=== PATIENT | female | born 1945 | race American Indian/Alaskan Native ===

== ENCOUNTER 2017-06-06 08:56 | Outpatient (CLI) | payer MEDICARE ==
--- NOTE | 2017-06-06 13:55 | Mammography Report ---
BILATERAL DIGITAL SCREENING MAMMOGRAM with CAD: 06/06/17 08:56:00 CLINICAL: Routine screening. COMPARISON:None available. FINDINGS: The breasts are heterogeneously dense, which may obscure small masses. No mass, architectural distortion or suspicious calcifications. IMPRESSION: No mammographic evidence of malignancy. BI-RADS CATEGORY: 1 - - Negative RECOMMENDATION: Routine mammographic screening in one year. COMMENT: Patient follow-up letters are generated by our [employer] application.
--- NOTE | 2017-06-06 13:57 | Mammography Report ---
BONE DEXA:06/06/17 08:56:00 CLINICAL: Postmenopausal. No comparison. TECHNIQUE: Two site bone DEXA performed on an Hologic scanner. FINDINGS: The average BMD of the lumbar spine L1-L4 is 0.825g/cm squared with a T-score of -2.0 and a Z-score of 90.4. The average BMD of the left hip is 0.674g/cm squared with a T-score of -2.2 and a Z-score of -1.0. IMPRESSION: 1. WHO classification: Osteopenia with increased fracture risk based on lumbar spine measurements. 2. WHO classification: Osteoporosis with high fracture risk based on left hip measurements. RECOMMENDATION: Clinical correlation and routine screening. DEFINITIONS: BMD = Bone Mineral Density T-score = BMD related to mean peak bone mass of young adult (mean expressed in Standard Deviation) Z-score = Age matched BMD expressed in SD World Health Organization (WHO) Diagnostic Criteria Normal T-score > -1 SD Osteopenia T-score between -1 and -2.4 SD Osteoporosis T-score -2.5 SD or below NOTE: BMD is not the only risk factor for fracture. One should also consider factors such as the patient's age, risk of falling, previous osteoporotic fracture, family history of osteoporotic fractures, current smoker, and low body weight. Z-scores are not calculated if >80 years of age.
== END 2017-06-06 08:57 | disposition home or self-care (01) ==
LOC: MAMMO 08:56
PROVIDERS: ATTEND Obstetrics & Gynecology
DX: Z12.31 Encounter for screening mammogram for malignant neoplasm of breast (principal); M81.0 Age-related osteoporosis without current pathological fracture; M85.88 Other specified disorders of bone density and structure, other site; Z78.0 Asymptomatic menopausal state
CPT/HCPCS: 77067; 77080

== ENCOUNTER 2018-10-04 13:03 | Emergency (ER) | payer MEDICARE ==
[2018-10-04] MEDS ORDERED: NACL 0.9% 1000 ML 1,000 ML IV ONE (14:33)
--- NOTE | 2018-10-04 14:39 | Emergency Department Report ---
- General Chief complaint: Weakness Stated complaint: WEAKNESS Time Seen by Provider: 10/04/18 14:17 Source: patient, EMS Mode of arrival: Stretcher Limitations: No Limitations - History of Present Illness Initial comments: Patient is 73 years old female with history of hypertension and arthritis. Patient presented to the ER complaining of generalized weakness started yesterday. Patient stated that she had a similar episode last year. Patient denied any chest pain, shortness of breath, abdominal pain, nausea or vomiting. Patient denied any focal weakness numbness or tingling sensation. No fever or chills. MD Complaint: generalized weakness -: Last night Location: generalized Severity scale (0 -10): 0 - Related Data Home Medications Medication Instructions Recorded Confirmed Last Taken Aspirin BABY CHEW TAB 1 tab PO DAILY 07/28/14 08/11/14 08/06/14 Carvedilol 1 tab PO BID 07/28/14 08/11/14 08/10/14 Latanoprost 0.005% 1 drop OU DAILY 07/28/14 08/11/14 08/10/14 Lisinopril/Hydrochlorothiazide 1 tab PO DAILY 07/28/14 08/11/14 08/10/14 Omeprazole 1 cap PO DAILY 07/28/14 08/11/14 08/10/14 Ranitidine 1 tab PO DAILY 07/28/14 08/11/14 08/10/14 Simvastatin 1 tab PO DAILY 07/28/14 08/11/14 08/10/14 Mineral Oil/Petrolatum,White 3.5 gm OP HS 07/31/14 08/11/14 08/10/14 [Refresh Lacri-Lube Ointment] Allergies Allergy/AdvReac Type Severity Reaction Status Date / Time No Known Allergies Allergy Verified 10/04/18 13:40 ED Review of Systems ROS: Stated complaint: WEAKNESS Other details as noted in HPI Comment: All other systems reviewed and negative Constitutional: denies: chills, fever Respiratory: denies: cough, shortness of breath Cardiovascular: denies: chest pain, palpitations, dyspnea on exertion, orthopnea Gastrointestinal: denies: abdominal pain, nausea, vomiting, diarrhea, constipation, hematemesis, melena, hematochezia Musculoskeletal: denies: back pain Neurological: weakness (generalized). denies: headache ED Past Medical Hx - Past Medical History Previous Medical History?: Yes Hx Hypertension: Yes Hx Arthritis: Yes Hx Seizures: Yes (X1 2004; NONE SINCE) Additional medical history: high cholesterol - Surgical History Past Surgical History?: No - Social History Smoking Status: Never Smoker Substance Use Type: None - Medications Home Medications: Home Medications Medication Instructions Recorded Confirmed Last Taken Type Aspirin BABY CHEW TAB 1 tab PO DAILY 07/28/14 08/11/14 08/06/14 History Carvedilol 1 tab PO BID 07/28/14 08/11/14 08/10/14 History Latanoprost 0.005% 1 drop OU DAILY 07/28/14 08/11/14 08/10/14 History Lisinopril/Hydrochlorothiazide 1 tab PO DAILY 07/28/14 08/11/14 08/10/14 History Omeprazole 1 cap PO DAILY 07/28/14 08/11/14 08/10/14 History Ranitidine 1 tab PO DAILY 07/28/14 08/11/14 08/10/14 History Simvastatin 1 tab PO DAILY 07/28/14 08/11/14 08/10/14 History Mineral Oil/Petrolatum,White 3.5 gm OP HS 07/31/14 08/11/14 08/10/14 History [Refresh Lacri-Lube Ointment] ED Physical Exam - General Limitations: No Limitations General appearance: alert, in no apparent distress - Head Head exam: Present: atraumatic, normocephalic, normal inspection - Eye Eye exam: Present: normal appearance, PERRL - ENT ENT exam: Present: normal exam, normal orophraynx, mucous membranes moist - Neck Neck exam: Present: normal inspection, full ROM. Absent: tenderness, meningismus, lymphadenopathy, thyromegaly - Respiratory Respiratory exam: Present: normal lung sounds bilaterally - Cardiovascular Cardiovascular Exam: Present: regular rate, normal rhythm, normal heart sounds - GI/Abdominal GI/Abdominal exam: Present: soft, normal bowel sounds. Absent: distended, tenderness, guarding, rebound, rigid, organomegaly, mass, bruit, pulsatile mass, hernia - Extremities Exam Extremities exam: Present: normal inspection, full ROM, normal capillary refill. Absent: tenderness, pedal edema, calf tenderness - Back Exam Back exam: Present: normal inspection, full ROM. Absent: CVA tenderness (R), CVA tenderness (L), muscle spasm, paraspinal tenderness, vertebral tenderness, rash noted - Neurological Exam Neurological exam: Present: alert, oriented X3, CN II-XII intact, normal gait, reflexes normal - Psychiatric Psychiatric exam: Present: normal mood - Skin Skin exam: Present: warm, intact, normal color ED Course Vital Signs 10/04/18 10/04/18 10/04/18 14:01 14:28 14:43 Temperature 97.7 F Pulse Rate 63 57 L 64 Respiratory 13 15 13 Rate Blood Pressure Blood Pressure 125/75 [Left] O2 Sat by Pulse 99 96 98 Oximetry 10/04/18 10/04/18 10/04/18 15:00 15:31 16:00 Temperature Pulse Rate 65 62 63 Respiratory 12 15 16 Rate Blood Pressure 135/84 133/79 137/92 Blood Pressure [Left] O2 Sat by Pulse 100 99 97 Oximetry ED Medical Decision Making - Lab Data Result diagrams: 10/04/18 14:44 10/04/18 14:44 - EKG Data -: EKG Interpreted by Nh EKG shows normal: sinus rhythm Rate: bradycardia - EKG Data Interpretation: no acute changes - Radiology Data Radiology results: report reviewed CT brain is negative for acute finding. - Medical Decision Making Patient is 73 years old female with history of hypertension and arthritis. Patient presented to the ER complaining of generalized weakness started yesterday. Patient stated that she had a similar episode last year. Patient denied any chest pain, shortness of breath, abdominal pain, nausea or vomiting. Patient denied any focal weakness numbness or tingling sensation. No fever or chills. Patient stated that she is feeling much better. Patient and/or stated that her grandmother has been walking a lot outside in the heat recently. Patient had a mild rhabdomyolysis. Rest of her labs are unremarkable. Patient advised to increase her by mouth intake and to follow up with her primary care physician in the next 2-3 days. Critical care attestation.: If time is entered above; I have spent that time in minutes in the direct care of this critically ill patient, excluding procedure time. ED Disposition Clinical Impression: Weakness, Non-traumatic rhabdomyolysis Disposition: -01 TO HOME OR SELFCARE Is pt being admited?: No Condition: Stable Instructions: Rhabdomyolysis (ED), Weakness (ED) Referrals: JOSIAS BAGLEY MD [Primary Care Provider] - 3-5 Days
[2018-10-04 15:19] LABS: Basophils # (Auto) 0.1 K/mm3 (0.0-0.1); Basophils % (Auto) 1.1 % (0.0-1.8); Eosinophils # (Auto) 0.2 K/mm3 (0.0-0.4); Eosinophils % (Auto) 3.6 % (0.0-4.3); Hematocrit 40.6 % (30.3-42.9); Hemoglobin 13.3 gm/dl (10.1-14.3); Lymphocytes # (Auto) 1.4 K/mm3 (1.2-5.4); Lymphocytes % (Auto) 30.5 % (13.4-35.0); Mean Corpuscular HGB Conc 33 % (30-34); Mean Corpuscular Volume 89 fl (79-97); Monocytes # (Auto) 0.3 K/mm3 (0.0-0.8); Monocytes % (Auto) 6.2 % (0.0-7.3); Platelet Count 145 K/mm3 (140-440); Red Blood Count 4.54 M/mm3 (3.65-5.03); Red Cell Distribution Width 14.2 % (13.2-15.2)
[2018-10-04 15:25] LABS: BUN/Creatinine Ratio 15; Blood Urea Nitrogen 12 mg/dL (7-17); Calcium 9.5 mg/dL (8.4-10.2); Hemolysis Index 81
[2018-10-04 15:29] LABS: Alanine Aminotransferase 24 units/L (7-56); Albumin 3.7 g/dL (3.9-5)
[2018-10-04 15:39] LABS: Bilirubin,Direct < 0.2 mg/dL (0-0.2)
[2018-10-04 15:46] LABS: Free T4 (Free Thyroxine) 1.02 ng/dL (0.76-1.46)
[2018-10-04 16:05] LABS: Bilirubin,Urine NEG (Negative); Blood,Urine NEG (Negative); Color,Urine Yellow (Yellow); Protein,Urine <15 mg/dL mg/dL (Negative); RBC,Urine < 1.0 /HPF (0.0-6.0); Urobilinogen,Urine < 2.0 mg/dL (<2.0)
--- NOTE | 2018-10-04 16:32 | Cat Scan Report ---
PROCEDURE: CT HEAD/BRAIN WO CON TECHNIQUE: Computerized tomography of the head was performed without contrast material. CT DOSE LENGTH PRODUCT: 805.4 mGycm HISTORY: Weakness COMPARISONS: None . FINDINGS: Scattered slight mucosal thickening ethmoid sinuses. Other included paranasal sinuses are clear as ar e the mastoid air cells and middle ear cavities. No acute air-fluid level visualized in the included air-filled sinuses. Bone windows demonstrate no acute fracture. There is ventricular and sulcal prominence compatible with age-appropriate global cerebrocortical atr ophy. The brain contains no mass, mass effect, hemorrhage, or acute infarct. There is no extra-axial intracranial bleed, brain bleed, or midline shift. IMPRESSION: No acute CVA, intracranial bleed, or brain mass This document is electronically signed by Pa Wagoner MD., October 04 2018 04:30:37 PM ET
[2018-10-04 18:19] VITALS: BP 144/82
== END 2018-10-04 18:22 | disposition home or self-care (01) ==
LOC: ED 13:03
DX: M62.82 Rhabdomyolysis (principal); I10 Essential (primary) hypertension; M19.90 Unspecified osteoarthritis, unspecified site; E78.00 Pure hypercholesterolemia, unspecified; R55 Syncope and collapse; Z79.82 Long term (current) use of aspirin
CPT/HCPCS: 36415; 70450; 80048; 80076; 81001; 82550; 83735; 84439; 84443; 84484; 85025; 93005; 93010; 96360; 99285; J7030

== ENCOUNTER 2021-02-23 07:41 | Day surgery (SDC) | payer MEDICARE ==
[2021-02-23] MEDS ORDERED: ASPIRIN EC 325 MG TAB PO ONE (08:39)
[2021-02-23] MEDS ORDERED: SODIUM CHLORIDE 0.9% 500 ML 500 ML IV SCH (09:00)
[2021-02-23 09:03] LABS: Hemoglobin 12.6 gm/dl (10.1-14.3); Mean Corpuscular HGB Conc 33 % (30-34); Mean Corpuscular Volume 86 fl (79-97); Platelet Count 120 K/mm3 (140-440); Red Blood Count 4.43 M/mm3 (3.65-5.03); Red Cell Distribution Width 14.4 % (13.2-15.2)
[2021-02-23 09:18] LABS: BUN/Creatinine Ratio 25; Blood Urea Nitrogen 20 mg/dL (7-17); Calcium 9.1 mg/dL (8.4-10.2); Hemolysis Index 23
[2021-02-23 09:29] LABS: INR 0.96 (0.87-1.13)
[2021-02-23] MEDS ORDERED: HEPARIN 10,000 UNITS/10 ML VIAL ONE (10:58)
[2021-02-23] MEDS ORDERED: VERAPAMIL 5 MG/2 ML INJ ONE (10:58)
[2021-02-23] MEDS ORDERED: fentaNYL 100 MCG/2 ML INJ ONE (10:58)
[2021-02-23] MEDS ORDERED: MIDAZOLAM 2 MG/2 ML INJ ONE (10:58)
[2021-02-23] MEDS ORDERED: HEPARIN/NS 5000 UNIT/500ML 1,000 ML IR ONE (10:58)
[2021-02-23] MEDS ORDERED: LIDOCAINE (2%) 20 MG/1 ML VIAL 20 ML MDV INFILTRATI ONE ×2 (10:59→11:44)
[2021-02-23] MEDS ORDERED: NITROGLYCERIN SYRINGE 3 ML ONE (10:59)
[2021-02-23] MEDS ORDERED: MIDAZOLAM 2 MG/2 ML INJ IV ONE (11:43)
[2021-02-23] MEDS ORDERED: fentaNYL 100 MCG/2 ML INJ IV ONE (11:43)
[2021-02-23] MEDS ORDERED: HEPARIN 10,000 UNITS/10 ML VIAL ART-SHEATH ONE (11:45)
[2021-02-23] MEDS ORDERED: VERAPAMIL 5 MG/2 ML INJ ART-SHEATH ONE (11:46)
[2021-02-23] MEDS ORDERED: NITROGLYCERIN 600 MCG/3 ML SYRINGE ART-SHEATH ONE (11:46)
[2021-02-23] MEDS ORDERED: HEPARIN 2,000 UNIT in SODIUM CHLORIDE 0.9% 500 ML 500 ML IR ONE (11:48)
--- NOTE | 2021-02-23 12:35 | Cardiac Catherization Report ---
DATE OF SERVICE: 02/23/2021 REASON FOR PROCEDURE: Chest pain. PROCEDURES PERFORMED: 1. Left heart catheterization. 2. Selective left and right coronary angiography. 3. Left ventricular angiography. 4. Sedation time start 11:43, end 11:58. DESCRIPTION OF PROCEDURE: The patient was prepped and draped in a sterile fashion after informed consent. The right radial cath site was prepped and draped after negative Jhonny's test. The right radial artery was entered using Seldinger technique followed by placement of a 6-[place] hydrophilic sheath. Routine radial cocktail was administered via the sheath. Selective left and right coronary angiography was performed using a #3.5 left Reynaldo and a #4 right Reynaldo. The pigtail catheter was used for left ventricular angiography. The catheters were then removed, sheath removed and hemostasis achieved using a TR band. The patient was returned to the postprocedure unit in stable condition. There were no complications. FINDINGS: HEMODYNAMICS: Left ventricular end diastolic pressure was 24, following coronary angiography. Ascending aortic pressure was 150/84. There was no significant pressure gradient on pullback across the aortic valve. CORONARY ANGIOGRAPHY: Left main coronary artery was angiographically normal. The left anterior descending artery contained mild luminal irregularities of its mid segment, but otherwise this vessel and its diagonal branches were angiographically normal. A large ramus intermedius artery was angiographically normal. The circumflex artery and its obtuse marginal branches were angiographically normal. The right coronary artery was also a large caliber vessel, dominant and similarly angiographically normal. There was normal left ventricular systolic function with ejection fraction 60%. CONCLUSION: 1. Mild luminal irregularities of the mid LAD, otherwise angiographically normal coronary arteries. 2. Normal left ventricular systolic function, ejection fraction 60%. RECOMMENDATIONS: Risk factor modification and medical therapy. TID: [id number] RECEIPT: [id number] MONSTER/SKIP
[2021-02-23] MEDS ORDERED: traMADol 50 MG TAB PO PRN (13:40)
--- NOTE | 2021-02-23 13:43 | Discharge Summary ---
Short Stay Discharge Plan Activity: advance as tolerated Weight Bearing Status: Full Weight Bearing Diet: low fat, low cholesterol, low salt Wound: keep clean and dry Special Instructions: smoking cessation, no heavy lifting (3 days) Follow up with: CHI MENDEZ MD [Primary Care Provider] - 7 Days LOUISE NEGRON MD [Staff Physician] - 7 Days
[2021-02-23] MEDS ORDERED: SODIUM CHLORIDE 0.9% 1000 ML 1,000 ML IV SCH (13:45)
[2021-02-23 15:05] VITALS: BP 127/68
--- NOTE | 2021-02-23 19:21 | Electrocardiograph Report ---
[facility] Test Date: 2021-02-23 Test Time: 09:28:56 Pat Name: MARY LOPEZ Department: Room: Gender: F Rn Chemical Dependency: [place] : 1945 Requested By: MARIELY THAPA Order Number: [id number] Reading MD: Mariely Thapa Measurements Intervals [place] Rate: 55 P: 28 MS: 200 QRS: -27 QRSD: 80 T: 10 QT: 439 QTc: 421 Interpretive Statements Sinus rhythm Probable left atrial enlargement Probable left ventricular hypertrophy Poor R wave progression No previous ECG available for comparison Electronically Signed On 02-23-2021 19:20:31 EDT by Mariely Thapa
== END 2021-02-23 15:55 | disposition home or self-care (01) ==
LOC: CATHLABREC 07:41
PROVIDERS: ATTEND Internal Medicine Cardiovascular Disease
DX: R07.9 Chest pain, unspecified (principal); R60.9 Edema, unspecified; I10 Essential (primary) hypertension; E78.00 Pure hypercholesterolemia, unspecified; G47.30 Sleep apnea, unspecified; M19.90 Unspecified osteoarthritis, unspecified site; K21.9 Gastro-esophageal reflux disease without esophagitis; Z86.73 Personal history of transient ischemic attack (TIA), and cerebral infarction without residual deficits; Z79.899 Other long term (current) drug therapy; Z98.890 Other specified postprocedural states; Z82.49 Family history of ischemic heart disease and other diseases of the circulatory system
CPT/HCPCS: 36415; 80048; 85027; 85610; 93005; 93458; 99156; C1769; C1894; J1644; J2250; J3010; J7040; Q9967